=== PATIENT | female | born 1980 | race African-American/Black ===

== ENCOUNTER 2022-04-26 06:29 | Emergency (ER) | payer OTHER ==
[~2022-04-26] VITALS: Ht 165.1 cm; Wt 93.4 kg
[2022-04-26] MEDS ORDERED: IBUPROFEN 600MG TABLET PO ONE (08:00)
[2022-04-26 08:10] VITALS: BP 146/77
[2022-04-26] MEDS ORDERED: MELO-105 MT (08:53)
== END 2022-04-26 09:13 | disposition home or self-care (01) ==
LOC: ER 06:29
DX: M25.531 Pain in right wrist (principal); Z88.0 Allergy status to penicillin
CPT/HCPCS: 73110; 99283

== ENCOUNTER 2025-05-24 13:08 | Emergency (ER) | payer OTHER ==
[~2025-05-24] VITALS: Ht 165.1 cm; Wt 91.0 kg
[~2025-05-24 13:08] MED LIST: MELO-105 MT
[2025-05-24 13:14] VITALS: O2SAT 99
[2025-05-24] MEDS: DIPHENHYDRAMINE 25MG CAPSULE PO ONE (14:03)
[2025-05-24] MEDS ORDERED: TRIA60LO12 TP (14:55)
[2025-05-24 16:15] VITALS: BP 134/86; PULSE 86; RESP 20; TEMP 36.9; O2SAT 99
== END 2025-05-24 16:17 | disposition home or self-care (01) ==
LOC: ER 13:08
DX: L30.9 Dermatitis, unspecified (principal); Z79.1 Long term (current) use of non-steroidal anti-inflammatories (NSAID); Z88.0 Allergy status to penicillin
CPT/HCPCS: 99283; Q0163; Z7610